=== PATIENT | male | born 1995 | race Caucasian/White ===

== ENCOUNTER 2023-06-10 16:40 | Inpatient (IN) | payer OTHER ==
[2023-06-10 19:28] VITALS: BMI 28.3
[2023-06-10] MEDS ORDERED: chlordiazePOXIDE HCL 25 MG CAPSULE PO PRN (19:58)
[2023-06-10] MEDS ORDERED: METOPROLOL TARTRATE 25 MG TABLET (FP) ONE (20:10)
[2023-06-10] MEDS ORDERED: MAGNESIUM HYDROX 2400MG/30ML ORAL SUSPENSION 30 ML CUP PO PRN (20:16)
[2023-06-10] MEDS ORDERED: ACETAMINOPHEN 325 MG TABLET (FP) PO PRN (20:16)
[2023-06-10] MEDS ORDERED: IBUPROFEN 400 MG TABLET (FP) PO PRN (20:16)
[2023-06-10] MEDS ORDERED: LOPERAMIDE HCL 2 MG CAPSULE PO PRN (20:16)
[2023-06-10] MEDS ORDERED: BISMUTH SUBSALICYLATE 524 MG/30 ML PO PRN (20:16)
[2023-06-10] MEDS ORDERED: BENZOCAINE/MENTHOL (CHLORASEPTIC ) LOZENGE MM PRN (20:16)
[2023-06-10] MEDS ORDERED: POLYETHYLENE GLYCOL (HEALTHYLAX) 3350 17 GM PACKET PO PRN (20:16)
[2023-06-10] MEDS ORDERED: MAG HYDROX/AL HYDROX/SIMETH 30 ML UNIT-DOSE CUP PO PRN (20:16)
[2023-06-10] MEDS ORDERED: P-EPHED 60MG/TRIPROLIDI 2.5MG TABLET PO PRN (20:16)
[2023-06-10] MEDS ORDERED: DICYCLOMINE HCL 10 MG CAPSULE PO PRN (20:16)
[2023-06-10] MEDS ORDERED: guaiFENesin 600 MG TABLET.ER (FP) PO PRN (20:16)
[2023-06-10] MEDS ORDERED: BENZONATATE 200 MG CAPSULE PO PRN (20:16)
[2023-06-10] MEDS: LORazepam 2 MG/ML SDV VIAL IM ONE (20:18)
[2023-06-10] MEDS: METOPROLOL TARTRATE 25 MG TABLET (FP) PO ONE (20:19)
[2023-06-10] MEDS: chlordiazePOXIDE HCL 25 MG CAPSULE PO SCH (22:45)
[2023-06-10] MEDS: THIAMINE 100 MG TABLET PO SCH (22:45)
[2023-06-10] MEDS: levETIRAcetam 500 MG TABLET (FP) PO SCH (22:45)
[2023-06-10] MEDS: MELATONIN 5 MG TABLETS PO SCH (22:46)
[2023-06-10] MEDS: IBUPROFEN 600 MG TABLET (FP) PO PRN (22:47)
[2023-06-11] MEDS: QUEtiapine FUMARATE 25 MG TABLET PO ONE
[2023-06-11] MEDS: QUEtiapine FUMARATE 50 MG TABLET PO ONE (00:04)
[2023-06-11] MEDS: ESCITALOPRAM OXALATE 10 MG TABLET PO SCH (10:33)
[2023-06-11] MEDS: PRENATAL VITAMINS W/ FOLIC ACID TABLET (FP) PO SCH (10:33)
[2023-06-11 12:15] LABS: CHLORIDE 96 mmol/L (98-107); POTASSIUM 3.1 mmol/L (3.5-5.1); SODIUM 135 mmol/L (136-145)
[2023-06-11 12:17] LABS: ANION GAP 8 mmol/L (4-13); CO2 31 mmol/L (21-32); HEMATOCRIT 40.7 % (35.4-49); HEMOGLOBIN 13.4 GM/dL (11.7-16.9); MCH 29.5 pg (25.7-33.7); MCHC 32.8 g/dl (32.0-35.9); MEAN PLT VOLUME 8.1 fl (7.5-11.1); PLATELET COUNT 193 10^3/uL (134-434); RBC 4.53 M/mm3 (4.00-5.60); RDW 16.1 % (11.9-15.9); WHITE BLOOD COUNT 5.7 K/mm3 (4.0-10.0)
[2023-06-11 12:18] LABS: ALBUMIN 3.6 g/dl (3.4-5.0); GLUCOSE,RANDOM 79 mg/dL (74-106)
[2023-06-11 12:21] LABS: CREATININE 1.1 mg/dL (0.55-1.3); SGOT/AST 41 U/L (15-37); SGPT/ALT 27 U/L (13-61)
[2023-06-11 12:22] LABS: BILIRUBIN,TOTAL 1.1 mg/dL (0.2-1); TOT PROT 7.6 g/dl (6.4-8.2)
[2023-06-11 12:23] LABS: ALK PHOS 94 U/L (45-117)
[2023-06-11] MEDS: ONDANSETRON *ODT* 4 MG TABLET SL PRN (17:19)
[2023-06-11] MEDS: QUEtiapine FUMARATE 25 MG TABLET PO SCH (22:27)
[2023-06-11] MEDS: hydrOXYzine PAMOATE 25 MG CAPSULE (FP) PO PRN (22:27)
[2023-06-12] MEDS: chlordiazePOXIDE HCL 25 MG CAPSULE PO SCH (05:31)
[2023-06-12] MEDS: POTASSIUM CHLORIDE ORAL LIQUID 20 MEQ/15 ML PO SCH (10:04)
[2023-06-12] MEDS: METHOCARBAMOL 500 MG TABLET PO PRN (10:04)
[2023-06-12 21:39] VITALS: RESP 18
[2023-06-13] MEDS ORDERED: chlordiazePOXIDE HCL 10 MG CAPSULE PO PRN
[2023-06-13] MEDS: chlordiazePOXIDE HCL 10 MG CAPSULE PO SCH (05:22)
[2023-06-13 10:11] VITALS: BP 144/94; PULSE 73; TEMP 96.8
[2023-06-13 15:07] LABS: POTASSIUM 3.7 mmol/L (3.5-5.1)
[2023-06-13 15:14] LABS: ALBUMIN 3.6 g/dl (3.4-5.0)
[2023-06-13 15:15] LABS: BLOOD UREA NITROGEN 12.1 mg/dL (7-18)
[2023-06-13 15:18] LABS: CREATININE 0.9 mg/dL (0.55-1.3)
[2023-06-13 15:19] LABS: BILIRUBIN,TOTAL 0.6 mg/dL (0.2-1); TOT PROT 7.8 g/dl (6.4-8.2)
[2023-06-14] MEDS ORDERED: chlordiazePOXIDE HCL 10 MG CAPSULE PO SCH (05:00)
[2023-06-15] MEDS ORDERED: chlordiazePOXIDE HCL 10 MG CAPSULE PO ONE (05:00)
== END 2023-06-13 12:50 | disposition left against medical advice (07) | DRG 770 ==
LOC: YASAS 16:40 → Y6N 20:42
PROVIDERS: ADMIT Allergy & Immunology; ATTEND Surgery
PROC: HZ2ZZZZ Detoxification Services for Substance Abuse Treatment (ICD-10-PCS; principal; 2023-06-10)
DX: F10.230 Alcohol dependence with withdrawal, uncomplicated (principal); F12.20 Cannabis dependence, uncomplicated; F10.282 Alcohol dependence with alcohol-induced sleep disorder; F10.280 Alcohol dependence with alcohol-induced anxiety disorder; F10.24 Alcohol dependence with alcohol-induced mood disorder; F32.A Depression, unspecified; E87.5 Hyperkalemia; R79.89 Other specified abnormal findings of blood chemistry
CPT/HCPCS: 36415; 80053; 80305; 80307; 85027; 86780; 93005; 93010; Q0162